=== PATIENT | female | born 1990 | race Caucasian/White ===

== ENCOUNTER 2016-10-17 11:12 | Inpatient (IN) | payer OTHER ==
[~2016-10-17] VITALS: Ht 157.5 cm; Wt 97.7 kg
[2016-10-17 12:03] LABS: UA SPECIFIC GRAVITY 1.015 (1.005-1.035); microscopic required? YES; urine erythrocyte 3+ (NEGATIVE)
[2016-10-17 12:11] LABS: BASOPHIL % 0.3 % (0-2); PLATELET COUNT 273 x10^3mcL (130-400); RED CELL DISTRIBUTION WIDTH 14.7 % (11.5-14.5)
[2016-10-17 12:30] LABS: CALCIUM 8.8 mg/dL (8.5-10.1); CARBON DIOXIDE 28.8 mmol/L (21-32); CHLORIDE SERUM 104 mmol/L (98-107); CREATININE SERUM 0.6 mg/dL (0.6-1.0); GFR1 > 60 mL/min; GLUCOSE SERUM 111 mg/dL (74-106); POTASSIUM SERUM 4.5 mmol/L (3.5-5.1); SODIUM SERUM 140 mmol/L (136-145)
[2016-10-17 12:35] LABS: ALKALINE PHOSPHATASE 121 U/L (46-116); ALT/SGPT 19 U/L (14-59); AST/SGOT 14 U/L (15-37); BILIRUBIN TOTAL 0.2 mg/dL (0.20-1.00); TOTAL PROTEIN, SERUM 7.6 g/dL (6.4-8.2)
[2016-10-17 12:37] LABS: ALBUMIN 3.2 g/dL (3.4-5.0)
[2016-10-17 15:30] VITALS: BP 157/96
[2016-10-17 15:37] LABS: T3 TOTAL 1.2 ng/mL
[2016-10-17 15:53] LABS: CHOLESTEROL/HDL RATIO 4.4; PHOSPHOROUS 3.2 mg/dL (2.5-4.9)
[2016-10-17 16:05] LABS: FREE T4 1.31 ng/dL (0.76-1.46); FREE THYROXINE INDEX 3.3 ug/dL (1.4-4.5); T4(THYROXINE) 9.4 ug/dL (4.7-13.3)
[2016-10-17 17:49] VITALS: BP 148/88
[2016-10-17 22:27] VITALS: BP 146/05
[2016-10-18 05:31] VITALS: BP 121/79
[2016-10-18 06:16] LABS: BASOPHIL % 0.6 % (0-2); PLATELET COUNT 238 x10^3mcL (130-400)
[2016-10-18 06:36] LABS: CALCIUM 8.2 mg/dL (8.5-10.1); CARBON DIOXIDE 24.4 mmol/L (21-32); CHLORIDE SERUM 105 mmol/L (98-107); CREATININE SERUM 0.6 mg/dL (0.6-1.0); GFR1 > 60 mL/min; GLUCOSE SERUM 116 mg/dL (74-106); MAGNESIUM 1.8 mg/dL (1.8-2.4); PHOSPHOROUS 3.4 mg/dL (2.5-4.9); POTASSIUM SERUM 3.8 mmol/L (3.5-5.1); SODIUM SERUM 138 mmol/L (136-145)
[2016-10-18 06:49] LABS: RED CELL DISTRIBUTION WIDTH 14.9 % (11.5-14.5)
[2016-10-18 09:58] VITALS: BP 122/75
[2016-10-18 13:48] VITALS: BP 127/77
[2016-10-18 17:52] VITALS: BP 136/85
[2016-10-18 22:07] VITALS: BP 152/92
[2016-10-19 05:42] VITALS: BP 141/94
[2016-10-19 10:20] VITALS: BP 125/77
[2016-10-19] MEDS ORDERED: FLO4 PO (11:06)
[2016-10-19] MEDS ORDERED: MAC100 PO (11:10)
[2016-10-19] MEDS ORDERED: LAC PO (11:11)
[2016-10-19 12:20] VITALS: BP 125/77
== END 2016-10-19 13:40 | disposition home or self-care (01) | DRG 693 ==
LOC: ED 11:12 → DU 14:32
PROVIDERS: Specialist; ADMIT Family Medicine
DX: N20.1 Calculus of ureter (principal); N17.0 Acute kidney failure with tubular necrosis; N39.0 Urinary tract infection, site not specified; E44.0 Moderate protein-calorie malnutrition; G89.29 Other chronic pain; M54.5 Low back pain; K57.30 Diverticulosis of large intestine without perforation or abscess without bleeding; E78.2 Mixed hyperlipidemia; E66.9 Obesity, unspecified; R80.9 Proteinuria, unspecified; E11.9 Type 2 diabetes mellitus without complications; Z68.39 Body mass index [BMI] 39.0-39.9, adult; Z83.3 Family history of diabetes mellitus
CPT/HCPCS: 82962; 83880; 84439; J0696; J1885; J2405; J3010; J7030; Q0092

== ENCOUNTER 2016-11-05 22:36 | Emergency (ER) | payer OTHER ==
[~2016-11-05 22:36] MED LIST: FLO4 PO; LAC PO; MAC100 PO
[2016-11-06 03:52] LABS: microscopic required? YES; urine erythrocyte 3+ (NEGATIVE)
[2016-11-06 07:15] VITALS: BP 150/96
== END 2016-11-06 07:15 | disposition home or self-care (01) ==
LOC: ED 22:36
PROVIDERS: Emergency Medicine Emergency Medical Services
DX: N20.1 Calculus of ureter (principal); N20.0 Calculus of kidney
CPT/HCPCS: J2270; J2405; J7030; Q0092

== ENCOUNTER 2016-11-22 12:34 | Day surgery (SDC) | payer OTHER ==
[2016-11-19 14:51] LABS: BASOPHIL % 0.3 % (0-2); PLATELET COUNT 291 x10^3mcL (130-400); RED CELL DISTRIBUTION WIDTH 14.6 % (11.5-14.5)
[2016-11-19 14:56] LABS: microscopic required? YES; urine erythrocyte TRACE (NEGATIVE)
[2016-11-19 15:13] LABS: CARBON DIOXIDE 31.1 mmol/L (21-32); CHLORIDE SERUM 102 mmol/L (98-107); CREATININE SERUM 1.1 mg/dL (0.6-1.0); GFR1 > 60 mL/min; GLUCOSE SERUM 118 mg/dL (74-106); POTASSIUM SERUM 3.9 mmol/L (3.5-5.1); SODIUM SERUM 136 mmol/L (136-145)
[~2016-11-22] VITALS: Ht 154.9 cm; Wt 98.9 kg
[2016-11-22 12:54] VITALS: BP 171/101
[2016-11-22 17:45] VITALS: BP 132/91
== END 2016-11-22 17:45 | disposition home or self-care (01) ==
LOC: DS 12:34 → OR 14:00 → DS 14:00
PROVIDERS: Urology
PROC: 0TC68ZZ Extirpation of Matter from Right Ureter, Via Natural or Artificial Opening Endoscopic (ICD-10-PCS; 2016-11-22)
PROC: 0T768DZ Dilation of Right Ureter with Intraluminal Device, Via Natural or Artificial Opening Endoscopic (ICD-10-PCS; 2016-11-22)
PROC: 0WFR8ZZ Fragmentation in Genitourinary Tract, Via Natural or Artificial Opening Endoscopic (ICD-10-PCS; principal; 2016-11-22 14:00)
DX: N20.2 Calculus of kidney with calculus of ureter (principal); R31.0 Gross hematuria
CPT/HCPCS: C1769; C2625; J0690; J1170; J2250; J2405; J2704; J3010; J3490; J7120